=== PATIENT | male | born 1975 | race Caucasian/White ===

== ENCOUNTER 2021-06-17 09:29 | Emergency (ER) | payer OTHER ==
[~2021-06-17] VITALS: Ht 180.3 cm; Wt 125.6 kg
[2021-06-17] MEDS ORDERED: CHILDREN'S ASPI81 MG (09:38)
[2021-06-17] MEDS ORDERED: INDAPAMIDE1.25 MG PO (09:38)
[2021-06-17] MEDS ORDERED: TENORMIN50 M1 PO (09:38)
== END 2021-06-17 12:37 | disposition home or self-care (01) ==
LOC: ER 09:29
DX: R07.89 Other chest pain (principal); I10 Essential (primary) hypertension